=== PATIENT | female | born 1980 | race African-American/Black ===

== ENCOUNTER 2019-05-01 14:48 | Inpatient (IN) | payer OTHER ==
[2019-05-01 15:31] VITALS: BMI 25.2
--- NOTE | 2019-05-01 17:11 | HP ---
COWS - Scale Resting Pulse: 1= [place] 81-100 CIWA Score - Admission Criteria OASAS Guidelines: Admission for Medically Managed Detox: Requires at least one of the followin. CIWA greater than 12 2. Seizures within the past 24 hours 3. Delirium tremens within the past 24 hours 4. Hallucinations within the past 24 hours 5. Acute intervention needed for co occurring medical disorder 6. Acute intervention needed for co occurring psychiatric disorder 7. Severe withdrawal that cannot be handled at a lower level of care (continued vomiting, continued diarrhea, abnormal vital signs) requiring intravenous medication and/or fluids 8. Admission ROS S - HPI Allergies/Adverse Reactions: Allergies Allergy/AdvReac Type Severity Reaction Status Date / Time penicillin G Allergy Verified 05/01/19 15:03 Penicillins AdvReac Verified 05/01/19 15:03 History of Present Illness: 38 y.o. F PMH schizophrenia. The patient was recently admitted to [facility] (04/03/19) with unknown discharge date (she has hospital bracelet on). Patient states "I am here to try to get my child back, they caught my child doing crack cocaine". Patient denies using any recreational substances. Patient has tangential speech. Labile affect. States she did not take medications this morning. Patient sucking her thumb throughout most of interview. Crack cocaine: started at 35 y.o. says she does not use any drugs Cigarettes: Smokes when she is able to get cigarettes Marijuana: occasional use PSH: Social hx: on streets. not currently working. All: PCN Meds: falguni pascal - Ebola screening Have you traveled outside of the country in the last 21 days: No Have you had contact with anyone from an Ebola affected area: No Patient History - Substances abused Crack Substance route: Smoking Frequency: 1-2 times per week Amount used: 1 bag Age of first use: 35 Date of last use: 04/03/19 Admission Physical Exam [facility] - Vital Signs Vital Signs: Vital Signs - 24 hr 05/01/19 15:06 Temperature 97.7 F Pulse Rate 91 H Respiratory 20 Rate Blood Pressure 123/80 - Physical General Appearance: Yes: Within Normal Limits, Disheveled HEENTM: Yes: Hearing grossly Normal, Normal Voice Respiratory: Yes: Lungs Clear, Normal Breath Sounds, No Respiratory Distress Neck: Yes: Other (Diffusely dry skin on neck; cracking, no active discharge or bleeding) Breathalyzer - Breathalyzer Breathalyzer: 0 Urine Drug Screen - Test Device Lot number: [id number] Expiration date: 01/05/21 - Control Is test valid?: Yes - Results Drug screen NEGATIVE: No Urine drug screen results: MET-Methamphetamine, MOP-Opiates, BZO-Benzodiazepines
--- NOTE | 2019-05-01 18:06 | HP ---
CIWA Score - Admission Criteria OASAS Guidelines: Admission for Medically Managed Detox: Requires at least one of the followin. CIWA greater than 12 2. Seizures within the past 24 hours 3. Delirium tremens within the past 24 hours 4. Hallucinations within the past 24 hours 5. Acute intervention needed for co occurring medical disorder 6. Acute intervention needed for co occurring psychiatric disorder 7. Severe withdrawal that cannot be handled at a lower level of care (continued vomiting, continued diarrhea, abnormal vital signs) requiring intravenous medication and/or fluids 8. Admitting History and Physical - Admission Chief Complaint: " I dont want to smoke no more". crack/cocaine rehabilitation History of Present Illness: Patient is a 38 yo female, homeless, with hx of crack / cocaine use since 35 yo referred by [facility], first time seeking treatment. As per patient she was admitted to [facility] for one month for depression. Utox positive for MOP, BZO, MET, patient refuses detox at this time, requested rehabilitation. As per patient she currently has an ACS case and was advise needs to attend treatment. PMHX: denies. Psych: depression, schizophrenia and bipolar reports on ability and Depakote. History Source: Patient Limitations to Obtaining History: No Limitations - Past Surgical History Past Surgical History: Yes: None - Smoking History Smoking history: Current every day smoker Have you smoked in the past 12 months: Yes Aproximately how many cigarettes per day: 4 - Alcohol/Substance Use Hx Alcohol Use: No History of Substance Use: reports: Cocaine Admission ROS [facility] - HPI Allergies/Adverse Reactions: Allergies Allergy/AdvReac Type Severity Reaction Status Date / Time penicillin G Allergy Verified 05/01/19 15:03 Penicillins AdvReac Verified 05/01/19 15:03 Exam Limitations: No Limitations - Ebola screening Have you traveled outside of the country in the last 21 days: No Have you had contact with anyone from an Ebola affected area: No - Review of Systems Constitutional: Chills, Diaphoresis, Changes in sleep EENT: reports: No Symptoms Reported Respiratory: reports: No Symptoms reported Cardiac: reports: No Symptoms Reported GI: reports: No Symptoms Reported : reports: No Symptoms Reported Musculoskeletal: reports: Joint Pain (left foot) Integumentary: reports: Pruritus (neck x one month) Endocrine: reports: No Symptoms Reported Hematology: reports: No Symptoms Reported Psychiatric: reports: Orientated x3, Anxious, Depressed Other Systems: Reviewed and Negative Patient History - Patient Medical History Hx Anemia: No Hx Asthma: No Hx Chronic Obstructive Pulmonary Disease (COPD): No Hx Cancer: No Hx Cardiac Disorders: No Hx Congestive Heart Failure: No Hx Hypertension: No Hx Hypercholesterolemia: No Hx Pacemaker: No HX Cerebrovascular Accident: No Hx Seizures: No Hx Dementia: No Hx Diabetes: No Hx Gastrointestinal Disorders: No Hx Liver Disease: No Hx Genitourinary Disorders: No Hx Sexually Transmitted Disorders: No Hx Renal Disease (ESRD): No Hx Thyroid Disease: No Hx Human Immunodeficiency Virus (HIV): No Hx Hepatitis C: No Hx Depression: Yes Hx Suicide Attempt: No Hx Bipolar Disorder: Yes Hx Schizophrenia: Yes - Patient Surgical History Past Surgical History: Yes Hx Section: Yes (x1) - PPD History Previous Implant?: No Documented Results: Negative w/o proof PPD to be Administered?: Yes - Reproductive History Patient is a Female of Child Bearing Age (11 -55 yrs old): Yes Last Menstrual Period: 03/23/19 Patient : No - Smoking Cessation Smoking history: Current every day smoker Have you smoked in the past 12 months: Yes Aproximately how many cigarettes per day: 4 Hx Chewing Tobacco Use: No Initiated information on smoking cessation: Yes 'Breaking Loose' booklet given: 05/01/19 - Substance & Tx. History Hx Alcohol Use: No Hx Substance Use: Yes Substance Use Type: Cocaine Hx Substance Use Treatment: No - Substances abused Crack Substance route: Smoking Frequency: 3-6 times per week Amount used: $10 -20 Age of first use: 35 Date of last use: 04/03/19 Admission Physical Exam [facility] - Vital Signs Vital Signs: Vital Signs - 24 hr 05/01/19 15:06 Temperature 97.7 F Pulse Rate 91 H Respiratory 20 Rate Blood Pressure 123/80 - Physical General Appearance: Yes: Appropriately Dressed, Thin, Anxious (sucking her thumb and tearing during assessment) HEENTM: Yes: EOMI, Hearing grossly Normal, Normal ENT Inspection, Normocephalic , Normal Voice, HELEN, Pharynx Normal, Tm's normal Respiratory: Yes: Chest Non-Tender, Lungs Clear, Normal Breath Sounds, No Respiratory Distress, No Accessory Muscle Use Neck: Yes: Within Normal Limits Breast: Yes: Breast Exam Deferred Cardiology: Yes: Regular Rhythm, Regular Rate Abdominal: Yes: Normal Bowel Sounds, Non Tender, Flat, Soft Genitourinary: Yes: Within Normal Limits Back: Yes: Normal Inspection Musculoskeletal: Yes: full range of Motion, Gait Steady, Pelvis Stable Extremities: Yes: Normal Capillary Refill, Normal Inspection, Normal Range of Motion, Non-Tender Neurological: Yes: disease intervention specialist II-XII NML intact, Fully Oriented, Alert, Motor Strength 5/5, Depressed Affect Integumentary: Yes: Normal Color, Rash (pruritis around neck with flaking skin) Lymphatic: Yes: Within Normal Limits - Diagnostic (1) Cocaine dependence, uncomplicated Current Visit: Yes Status: Acute (2) Nicotine dependence Current Visit: Yes Status: Chronic Qualifiers: Nicotine product type: cigarettes (3) Psychiatric disorder Current Visit: Yes Status: Acute Comment: Psych consult order patient reports hx of bipolar and schizophernia on abilify and depakote does not recall med dose or last time medication was taken (4) Contact dermatitis Current Visit: Yes Status: Acute Qualifiers: Contact dermatitis type: allergic Contact dermatitis trigger: cosmetics Qualified Code(s): L23.2 - Allergic contact dermatitis due to cosmetics (5) Homelessness Current Visit: Yes Status: Chronic Breathalyzer - Breathalyzer Breathalyzer: 0 Urine Drug Screen - Test Device Lot number: [id number] Expiration date: 01/05/21 - Control Is test valid?: Yes - Results Drug screen NEGATIVE: No Urine drug screen results: MET-Methamphetamine, MOP-Opiates, BZO-Benzodiazepines Inpatient Rehab Admission - Rehab Decision to Admit Inpatient rehab admission?: Yes - Initial Determination Are CD services needed?: Yes Free of communicable disease: Yes Not in need of hospitalization: Yes - Rehab Admission Criteria Previous failed treatment: Yes Poor recovery environment: Yes Comorbidities: Yes Lacks judgement: Yes Patient is meeting Inpatient Rehab admission criteria:: Yes
[2019-05-01] MEDS ORDERED: COLLOIDAL OATMEAL 1 BAR EACH TP PRN (18:17)
[2019-05-01] MEDS ORDERED: HYDROCORTISONE 1% TOPICAL OINT 30 GM TUBE TP PRN (18:18)
[2019-05-01] MEDS ORDERED: MAGNESIUM CITRATE 300 ML BOTTLE PO PRN (18:20)
[2019-05-01] MEDS ORDERED: P-EPHED 60MG/TRIPROLIDI 2.5MG TABLET PO PRN (18:20)
[2019-05-01] MEDS ORDERED: MAG HYDROX/AL HYDROX/SIMETH 30 ML UNIT-DOSE CUP PO PRN (18:20)
[2019-05-01] MEDS ORDERED: MENTHOL/PHENOL 1 EACH UD MM PRN (18:20)
[2019-05-01] MEDS ORDERED: guaiFENesin 200 MG/10 ML 10 ML UNIT-DOSE CUPS PO PRN (18:20)
[2019-05-01] MEDS ORDERED: LOPERAMIDE HCL 2 MG CAPSULE PO PRN (18:20)
[2019-05-01] MEDS ORDERED: MAGNESIUM HYDROX 2400MG/30ML ORAL SUSPENSION 30 ML CUP PO PRN (18:20)
[2019-05-01] MEDS: THIAMINE HCL 100 MG TABLET (FP) PO SCH (21:31)
[2019-05-01] MEDS: MINERAL OIL/PETROLAT/WATER TOPICAL CREAM 113 GM JAR TP SCH (21:31)
[2019-05-01] MEDS: MELATONIN 5 MG TABLETS PO PRN (21:31)
[2019-05-01] MEDS ORDERED: PT OWN MED DRAWER 7, Y5N ONE (22:55)
[2019-05-02] MEDS: NICOTINE POLACRILEX 2 MG GUM BC PRN ×6 (07:17→21:20)
[2019-05-02] MEDS ORDERED: PT OWN MED DRAWER 7, Y5N ONE (08:27)
[2019-05-02] MEDS: MINERAL OIL/PETROLAT/WATER TOPICAL CREAM 113 GM JAR TP SCH ×2 (09:00→21:26)
[2019-05-02] MEDS: PRENATAL VITAMINS W/ FOLIC ACID TABLET (FP) PO SCH (09:00)
[2019-05-02 12:15] LABS: HEMATOCRIT 36.7 % (32.4-45.2); HEMOGLOBIN 11.9 GM/dL (10.7-15.3); MCH 29.3 pg (25.7-33.7); MCHC 32.5 g/dl (32.0-36.0); MEAN CELL VOLUME 90.1 fl (80-96); PLATELET COUNT 228 K/MM3 (134-434); RBC 4.07 M/mm3 (3.60-5.2); RDW 15.3 % (11.6-15.6); WHITE BLOOD COUNT 7.5 K/mm3 (4.0-10.0)
[2019-05-02 12:27] LABS: ALBUMIN 3.4 g/dl (3.4-5.0); BILIRUBIN,TOTAL 0.3 mg/dL (0.2-1); CALCIUM 9.4 mg/dL (8.5-10.1); CREATININE 0.7 mg/dL (0.55-1.3); POTASSIUM 4.2 mmol/L (3.5-5.1); TOT PROT 6.9 g/dl (6.4-8.2)
--- NOTE | 2019-05-02 13:18 | EKG ---
Test Reason : Blood Pressure : / mmHG Vent. Rate : 064 BPM Atrial Rate : 064 BPM P-R Int : 128 ms QRS Dur : 082 ms QT Int : 416 ms P-R-T Axes : 056 041 052 degrees QTc Int : 429 ms NORMAL SINUS RHYTHM RSR' OR QR PATTERN IN V1 SUGGESTS RIGHT VENTRICULAR CONDUCTION DELAY NO PREVIOUS ECGS AVAILABLE Confirmed by NEERU WRIGHT MD ([id number]) on 05/02/2019 1:17:27 PM Referred By: Confirmed By:NEERU WRIGHT MD
--- NOTE | 2019-05-02 19:50 | CONSULT ---
[facility] Psychiatric Consult - Data Date of interview: 05/02/19 Admission source: Direct transfer from [facility]. Identifying data: First visit to [facility] and direct admission to [address] for this 38 y/o AA female referred for rehabilitative care for preservation of sobriety + management of schizophrenia. Patient is single, a mother of two, homeless, unemployed and supported on SSI benefits. Substance Abuse History: Discussed with the patient. Details in current [facility] report as follows : Smoking history: Current every day smoker. Have you smoked in the past 12 months: Yes. Aproximately how many cigarettes per day: 4. Hx Chewing Tobacco Use: No. Initiated information on smoking cessation: Yes. ' Breaking Loose' booklet given: 05/01/19. - Substance & Tx. History. Hx Alcohol Use: No. Hx Substance Use: Yes. Substance Use Type: Cocaine. Hx Substance Use Treatment: No. - Substances abused. Crack. Substance route: Smoking. Frequency: 3-6 times per week. Amount used: $10 -20. Age of first use: 35. Date of last use: 04/03/19 Medical History: Patient endorses good general health. Psychiatric History: Patient is noted as a hostile and irritable historian. She admits to " a few " psychiatric hospitalizations but declines to provide detailsed information. " I came straight from [facility] where they had kept me for a month." Diagnosed with Schizophrenia. As per self-report, the patient is maintained on valproate + aripriprazole (doses not recalled by patient). Ms Singh reports history of one remote - in the - suicide attempt (overdose with iron pills). Physical/Sexual Abuse/Trauma History: No information. Patient declines discussion on this domain. Additional Comment: Urine drug screen results: MET-Methamphetamine, MOP-Opiates , BZO-Benzodiazepines. Noted. Mental Status Exam - Mental Status Exam Alert and Oriented to: Time, Place Patient Appearance: Well Groomed Mood: Hostile, Irritable Affect: Mood Congruent, Normal Range Patient Behavior: Fatigued, Cooperative (superficially cooperative) Speech Pattern: Clear Voice Loudness: Normal Thought Process: Goal Oriented Thought Disorder: Not Present Hallucinations: Denies Suicidal Ideation: Denies Homicidal Ideation: Denies Insight/Judgement: Poor Sleep: Well Appetite: Good Gait/Station: Normal Psychiatric Findings - Problem List ([place] 1, 2,3) (1) Schizophrenia Current Visit: Yes Status: Chronic (2) Cocaine dependence, uncomplicated Current Visit: Yes Status: Chronic (3) Nicotine dependence Current Visit: Yes Status: Chronic Qualifiers: Nicotine product type: cigarettes - Initial Treatment Plan Initial Treatment Plan: Psychiatric evaluation is conducted with naval engineer, VANDANA Collier, in attendance. Collect records from [facility] for collateral information (social work team). Psychoeducation. Sleep hygiene. Groups. AA meetings. Motivational counseling. Will resume, empirically, depakote at the dose of 250 mg po bid + abilify 2 mg po daily (in the absence of data from the referring hospital). Side effects/benefits revisited with the patient. Ms Singh provided verbal consent to this plan of care. Depakote level in AM. Observation.
[2019-05-02] MEDS: THIAMINE HCL 100 MG TABLET (FP) PO SCH (21:19)
[2019-05-02] MEDS: DIVALPROEX SODIUM 250 MG TABLET E.C. PO SCH (21:20)
[2019-05-02] MEDS: MELATONIN 5 MG TABLETS PO PRN (21:20)
[2019-05-03] MEDS: NICOTINE POLACRILEX 2 MG GUM BC PRN ×8 (01:35→21:20)
[2019-05-03] MEDS: hydrOXYzine PAMOATE 50 MG CAPSULE (FP) PO PRN ×3 (02:11→21:18)
[2019-05-03] MEDS: DIVALPROEX SODIUM 250 MG TABLET E.C. PO SCH ×2 (10:42→21:18)
[2019-05-03] MEDS: ARIPiprazole 2 MG TABLET PO SCH (10:43)
[2019-05-03] MEDS: PRENATAL VITAMINS W/ FOLIC ACID TABLET (FP) PO SCH (10:43)
[2019-05-03] MEDS: MINERAL OIL/PETROLAT/WATER TOPICAL CREAM 113 GM JAR TP SCH ×2 (10:45→21:19)
[2019-05-03 12:29] LABS: PH,URINE 8.5 (5.0-8.0); URINE APPEARANCE CLEAR; URINE BILIRUBIN NEGATIVE (NEGATIVE); URINE COLOR YELLOW; URINE GLUCOSE (UA) NEGATIVE (NEGATIVE); URINE KETONE NEGATIVE (NEGATIVE); URINE LEUK ESTERASE NEGATIVE (NEGATIVE); URINE NITRITE NEGATIVE (NEGATIVE); URINE PROTEIN NEGATIVE (NEGATIVE); URINE UROBILINOGEN 0.2 mg/dL (0.2-1.0)
[2019-05-03] MEDS ORDERED: PT OWN MED DRAWER 7, Y5N ONE (18:14)
[2019-05-03] MEDS: THIAMINE HCL 100 MG TABLET (FP) PO SCH (21:17)
[2019-05-04] MEDS: NICOTINE POLACRILEX 2 MG GUM BC PRN ×5 (06:38→22:24)
[2019-05-04] MEDS: DIVALPROEX SODIUM 250 MG TABLET E.C. PO SCH ×2 (10:12→22:23)
[2019-05-04] MEDS: ARIPiprazole 2 MG TABLET PO SCH (10:12)
[2019-05-04] MEDS: PRENATAL VITAMINS W/ FOLIC ACID TABLET (FP) PO SCH (10:12)
[2019-05-04] MEDS: MINERAL OIL/PETROLAT/WATER TOPICAL CREAM 113 GM JAR TP SCH ×2 (10:12→22:24)
[2019-05-04] MEDS: ACETAMINOPHEN 325 MG TABLET (FP) PO PRN ×2 (15:10→23:56)
[2019-05-04] MEDS: hydrOXYzine PAMOATE 50 MG CAPSULE (FP) PO PRN (18:31)
[2019-05-04] MEDS: THIAMINE HCL 100 MG TABLET (FP) PO SCH (22:23)
[2019-05-04] MEDS: GABAPENTIN 100 MG CAPSULE (FP) PO PRN (22:23)
[2019-05-05] MEDS: IBUPROFEN 400 MG TABLET (FP) PO PRN ×2 (01:11→12:46)
[2019-05-05] MEDS: hydrOXYzine PAMOATE 50 MG CAPSULE (FP) PO PRN (05:53)
[2019-05-05] MEDS: ACETAMINOPHEN 325 MG TABLET (FP) PO PRN (05:53)
[2019-05-05] MEDS ORDERED: PT OWN MED DRAWER 7, Y5N ONE ×4 (06:33→21:03)
[2019-05-05] MEDS: NICOTINE POLACRILEX 2 MG GUM BC PRN ×5 (06:58→21:05)
[2019-05-05] MEDS: DIVALPROEX SODIUM 250 MG TABLET E.C. PO SCH ×2 (10:18→21:05)
[2019-05-05] MEDS: PRENATAL VITAMINS W/ FOLIC ACID TABLET (FP) PO SCH (10:18)
[2019-05-05] MEDS: MINERAL OIL/PETROLAT/WATER TOPICAL CREAM 113 GM JAR TP SCH ×2 (10:18→21:06)
[2019-05-05] MEDS: ARIPiprazole 2 MG TABLET PO SCH (10:19)
[2019-05-05] MEDS: THIAMINE HCL 100 MG TABLET (FP) PO SCH (21:05)
[2019-05-05] MEDS: GABAPENTIN 100 MG CAPSULE (FP) PO PRN (21:05)
[2019-05-06] MEDS: NICOTINE POLACRILEX 2 MG GUM BC PRN ×5 (06:39→23:07)
[2019-05-06] MEDS: ARIPiprazole 2 MG TABLET PO SCH (10:35)
[2019-05-06] MEDS: DIVALPROEX SODIUM 250 MG TABLET E.C. PO SCH (10:36)
[2019-05-06] MEDS: MINERAL OIL/PETROLAT/WATER TOPICAL CREAM 113 GM JAR TP SCH ×2 (10:36→22:02)
[2019-05-06] MEDS: PRENATAL VITAMINS W/ FOLIC ACID TABLET (FP) PO SCH (10:36)
--- NOTE | 2019-05-06 12:17 | PN ---
Psychiatric Progress Note Vital Signs: Vital Signs Period Temp Pulse Resp BP Sys/Steward Pulse Ox Last 24 Hr 98.4 F 67 16-16 110/69 Date of Session: 05/06/19 Chief Complaint:: "I'm having trouble sleeping and i sometimes feel snappy." HPI: Patient admitted to for cocaine and nicotine dependence. ROS: Patient is coherent, alert + oriented X3. Current Medications: Active Medications Generic Name Dose Route Start Last Admin Trade Name Freq PRN Reason Stop Dose Admin Acetaminophen 650 mg 05/01/19 18:20 05/05/19 05:53 Tylenol - PO 650 mg Q4H PRN Administration FEVER Al Hydroxide/Mg Hydroxide 30 ml 05/01/19 18:20 Mylanta Oral Suspension - PO Q6H PRN DYSPEPSIA Aripiprazole 2 mg 05/03/19 10:00 05/06/19 10:35 Abilify PO 2 mg DAILY JAJA Administration Colloidal Oatmeal 1 applic 05/01/19 18:17 Aveeno Soap - TP DAILY PRN HYGEINE Divalproex Sodium 250 mg 05/02/19 22:00 05/06/19 10:36 Depakote - PO 250 mg BID JAJA Administration Eucalyptus/Menthol/Phenol/Sorbitol 1 each 05/01/19 18:20 Cepastat Lozenge - MM Q4H PRN SORE THROAT Gabapentin 100 mg 05/01/19 18:17 05/05/19 21:05 Neurontin - PO 100 mg TID PRN Administration pain Guaifenesin 10 ml 05/01/19 18:20 Robitussin - PO Q6H PRN COUGH Hydrocortisone 1 applic 05/01/19 18:18 05/04/19 10:12 Hytone 1% Ointment - TP 1 applic TID PRN Administration Contact Dermatitis Hydroxyzine Pamoate 50 mg 05/01/19 18:20 05/05/19 05:53 Vistaril - PO 50 mg Q4H PRN Administration AGITATION Ibuprofen 400 mg 05/01/19 18:20 05/05/19 12:46 Motrin - PO 400 mg Q6H PRN Administration Pain level 4-6 Loperamide HCl 4 mg 05/01/19 18:20 Imodium - PO Q6H PRN DIARRHEA Magnesium Citrate 300 ml 05/01/19 18:20 Citroma - PO Q48H PRN CONSTIPATION Magnesium Hydroxide 30 ml 05/01/19 18:20 Milk Of Magnesia - PO DAILY PRN CONSTIPATION Melatonin 5 mg 05/01/19 22:00 05/02/19 21:20 Melatonin PO 5 mg HS PRN Administration INSOMNIA Multi-Ingredient Lotion 1 applic 05/01/19 22:00 05/06/19 10:36 Eucerin (Small Jar) - TP 1 applic BID JAJA Administration Nicotine Polacrilex 2 mg 05/01/19 18:20 05/06/19 08:54 Nicorette Gum - BC 2 mg Q2H PRN Administration NICOTINE REPLACEMENT RX Multivit/Folic Acid/Iron 1 tab 05/02/19 10:00 05/06/19 10:36 Vitamins (Sjr) - PO 1 tab DAILY JAJA Administration Pseudoephedrine/Triprolidine 1 combo 05/01/19 18:20 Actifed - PO TID PRN NASAL CONGESTION Thiamine HCl 100 mg 05/01/19 22:00 05/05/19 21:05 Vitamin B1 - PO 100 mg HS JAJA Administration Medication(s) Change(s): Yes. Current Side Effect: No Lab tests ordered: No Lab tests reviewed: Yes Provider note:: Patient with a history of schizophrenia. Patient seen by Dr. Dillard on 05/02/19. Dr. Dillard note read and appreciated. Patient reports difficulty sleeping and feeling "snappy at times." States she has not lashed out at anyone but at times feels irritable and is requesting an increase in depakote to help manage her mood more effectively. States she was recently discharged from [facility] before admission to rehab and was prescribed depakote 1000mg. Patient unsure of her abilify dose. Patient denies auditory/ visual hallucinations. States that when she is off her medications she has delusions that she can read other people's mind. At present patient denies psychotic symptoms. Patient is currently prescribed Abilify 2mg + Depakote 250mg BID. Will d/c Abilify 2mg and Depakote 250mg BID. Will order Abilify 5mg + Depakote 500mg HS. Will continue depakote 250mg Daily. Patient also informed that Melatonin 5mg is available for insomnia. Benefits and side effects discussed. Verbal consent given. Total face to face time:: 25 Mental Status Exam - Mental Status Exam Alert and Oriented to: Time, Place, Person Cognitive Function: Good Patient Appearance: Well Groomed Mood: Euthymic Affect: Mood Congruent Patient Behavior: Cooperative Speech Pattern: Clear Voice Loudness: Normal Thought Process: Goal Oriented Thought Disorder: Not Present Hallucinations: Denies Suicidal Ideation: Denies Homicidal Ideation: Denies Insight/Judgement: Poor Sleep: Poorly Appetite: Fair Muscle strength/Tone: Normal Gait/Station: Normal Psychiatric Treatment Plan - Problem List (1) Cocaine dependence, uncomplicated Current Visit: Yes (2) Nicotine dependence Current Visit: Yes Qualifiers: Nicotine product type: cigarettes (3) Schizophrenia Current Visit: Yes
[2019-05-06] MEDS: MELATONIN 5 MG TABLETS PO PRN (22:01)
[2019-05-06] MEDS: THIAMINE HCL 100 MG TABLET (FP) PO SCH (22:01)
[2019-05-06] MEDS: DIVALPROEX SODIUM 500 MG TABLET E.C. PO SCH (22:01)
[2019-05-07] MEDS: NICOTINE POLACRILEX 2 MG GUM BC PRN ×4 (06:08→22:33)
[2019-05-07] MEDS ORDERED: PT OWN MED DRAWER 7, Y5N ONE ×4 (08:55→20:40)
[2019-05-07] MEDS: MINERAL OIL/PETROLAT/WATER TOPICAL CREAM 113 GM JAR TP SCH ×2 (09:48→22:31)
[2019-05-07] MEDS: PRENATAL VITAMINS W/ FOLIC ACID TABLET (FP) PO SCH (09:48)
[2019-05-07] MEDS: DIVALPROEX SODIUM 250 MG TABLET E.C. PO SCH (09:48)
[2019-05-07] MEDS: ARIPiprazole 5 MG TABLET (FP) PO SCH (09:50)
[2019-05-07] MEDS: DIVALPROEX SODIUM 500 MG TABLET E.C. PO SCH (22:30)
[2019-05-07] MEDS: THIAMINE HCL 100 MG TABLET (FP) PO SCH (22:31)
[2019-05-07] MEDS: MELATONIN 5 MG TABLETS PO PRN (22:31)
[2019-05-08] MEDS: NICOTINE POLACRILEX 2 MG GUM BC PRN ×3 (07:00→18:47)
[2019-05-08 07:19] VITALS: BP 111/70; PULSE 66; TEMP 97.8
[2019-05-08] MEDS ORDERED: PT OWN MED DRAWER 7, Y5N ONE ×3 (08:45→23:10)
[2019-05-08] MEDS: PRENATAL VITAMINS W/ FOLIC ACID TABLET (FP) PO SCH (09:42)
[2019-05-08] MEDS: MINERAL OIL/PETROLAT/WATER TOPICAL CREAM 113 GM JAR TP SCH ×2 (09:42→21:31)
[2019-05-08] MEDS: DIVALPROEX SODIUM 250 MG TABLET E.C. PO SCH (09:42)
[2019-05-08] MEDS: ARIPiprazole 5 MG TABLET (FP) PO SCH (09:42)
[2019-05-08] MEDS: ACETAMINOPHEN 325 MG TABLET (FP) PO PRN (10:33)
[2019-05-08] MEDS: hydrOXYzine PAMOATE 50 MG CAPSULE (FP) PO PRN (13:53)
[2019-05-08] MEDS: THIAMINE HCL 100 MG TABLET (FP) PO SCH (21:31)
[2019-05-08] MEDS: DIVALPROEX SODIUM 500 MG TABLET E.C. PO SCH (21:31)
[2019-05-08] MEDS: MELATONIN 5 MG TABLETS PO PRN (21:32)
[2019-05-09] MEDS: hydrOXYzine PAMOATE 50 MG CAPSULE (FP) PO PRN (02:09)
[2019-05-09] MEDS ORDERED: LORazepam 2 MG TABLET PO ONE (03:24)
--- NOTE | 2019-05-09 08:35 | PN ---
Psychiatric Progress Note Date of Session: 05/09/19 Chief Complaint:: Patient is talking to self HPI: Patient with history of Schizophrenia and cocaine use admitted from [facility] on 05/01/19 for inpatient rehabilitation. Consultation requested because patient was observed talking loudly to herself while in her room saying" I'm going to Fk you pacing from her room to the bathroom. When addressed, she became evasive and hostile. Dr Dillard saw patient on admission on 05/02/19. His note is read and appreciated. According to Dr Dillard' note, patient was referred from [facility] where she was admitted for a month. As per his note, he has no record from [facility] regarding her treatment including medications. He described patient as hostile and irritable providing minimal information. She admitted to a few psychiatric hospitalizations including more recent one at [facility] saying that she was there for a month and was treated with Depakote and Abilify. As per Dr Dillard' note , she did not recall dosages of these medications. According to Dr Dillard' note, in the abscence of data from referring hospital the treatment plan was to resume empically, Depakote at 250 mg/bid and Abilify 2 mg/daily pending verification of her discharge medication from [facility]. There is no documentation regarding whether that verification was done. Current Medications: Active Medications Generic Name Dose Route Start Last Admin Trade Name Freq PRN Reason Stop Dose Admin Acetaminophen 650 mg 05/01/19 18:20 05/08/19 10:33 Tylenol - PO 650 mg Q4H PRN Administration FEVER Al Hydroxide/Mg Hydroxide 30 ml 05/01/19 18:20 Mylanta Oral Suspension - PO Q6H PRN DYSPEPSIA Aripiprazole 5 mg 05/07/19 10:00 05/08/19 09:42 Abilify PO 5 mg DAILY JAJA Administration Colloidal Oatmeal 1 applic 05/01/19 18:17 Aveeno Soap - TP DAILY PRN HYGEINE Divalproex Sodium 500 mg 05/06/19 22:00 05/08/19 21:31 Depakote - PO 500 mg HS JAJA Administration Divalproex Sodium 250 mg 05/07/19 10:00 05/08/19 09:42 Depakote - PO 250 mg DAILY JAJA Administration Eucalyptus/Menthol/Phenol/Sorbitol 1 each 05/01/19 18:20 Cepastat Lozenge - MM Q4H PRN SORE THROAT Gabapentin 100 mg 05/01/19 18:17 05/05/19 21:05 Neurontin - PO 100 mg TID PRN Administration pain Guaifenesin 10 ml 05/01/19 18:20 Robitussin - PO Q6H PRN COUGH Hydrocortisone 1 applic 05/01/19 18:18 05/04/19 10:12 Hytone 1% Ointment - TP 1 applic TID PRN Administration Contact Dermatitis Hydroxyzine Pamoate 50 mg 05/01/19 18:20 05/09/19 02:09 Vistaril - PO 50 mg Q4H PRN Administration AGITATION Ibuprofen 400 mg 05/01/19 18:20 05/05/19 12:46 Motrin - PO 400 mg Q6H PRN Administration Pain level 4-6 Loperamide HCl 4 mg 05/01/19 18:20 Imodium - PO Q6H PRN DIARRHEA Magnesium Citrate 300 ml 05/01/19 18:20 Citroma - PO Q48H PRN CONSTIPATION Magnesium Hydroxide 30 ml 05/01/19 18:20 Milk Of Magnesia - PO DAILY PRN CONSTIPATION Melatonin 5 mg 05/01/19 22:00 05/08/19 21:32 Melatonin PO 5 mg HS PRN Administration INSOMNIA Multi-Ingredient Lotion 1 applic 05/01/19 22:00 05/08/19 21:31 Eucerin (Small Jar) - TP Not Given BID JAJA Nicotine Polacrilex 2 mg 05/01/19 18:20 05/08/19 18:47 Nicorette Gum - BC 2 mg Q2H PRN Administration NICOTINE REPLACEMENT RX Multivit/Folic Acid/Iron 1 tab 05/02/19 10:00 05/08/19 09:42 Vitamins (Sjr) - PO 1 tab DAILY JAJA Administration Pseudoephedrine/Triprolidine 1 combo 05/01/19 18:20 Actifed - PO TID PRN NASAL CONGESTION Thiamine HCl 100 mg 05/01/19 22:00 05/08/19 21:31 Vitamin B1 - PO 100 mg HS JAJA Administration Current Side Effect: No Lab tests ordered: Yes Provider note:: Patient came to the office for interview. She was alert, oriented but very unpleasant, irritable, hostile and uncooperative with the interview. She only talked about she made a mistake with the man with whom she has children with. When asked to elaborate, she got up and walked out of the office. Slasher Sawyer accompanied by a nurse proceeded to go her room in an attempt to complete the interview. She was found in bed completely wrapped with bedsheet. She was more hostile, irritable and refused to cooperate by answering questions. she accused sign writer letterer or painter along with her aunt of conspiring against her. Mental Status Exam - Mental Status Exam Alert and Oriented to: Time, Place, Person Patient Appearance: Well Groomed Mood: Angry, Hostile Affect: Appropriate Patient Behavior: Uncooperative Speech Pattern: Clear Voice Loudness: Normal Thought Process: Intact Thought Disorder: Present (paranoid delusions) Hallucinations: Denies (but internally preoccupied) Suicidal Ideation: Denies Homicidal Ideation: Denies Insight/Judgement: Poor Muscle strength/Tone: Normal Gait/Station: Normal Psychiatric Treatment Plan - Problem List (1) Schizoaffective disorder Current Visit: Yes (2) Cocaine dependence Current Visit: Yes (3) Nicotine dependence Current Visit: Yes Qualifiers: Nicotine product type: cigarettes Initial treatment plan: Patient with history of Schizophrenia and cocaine use present with acute psychosis(auditory hallucinations, paranoid delusions) in the context of sub-optimal dose of medication. She requires a higher level of care to manage her symptoms. She will be 2 PCed and transferred to [facility] for appropriate management
[2019-05-09] MEDS ORDERED: PT OWN MED DRAWER 7, Y5N ONE (08:52)
[2019-05-09] MEDS: MINERAL OIL/PETROLAT/WATER TOPICAL CREAM 113 GM JAR TP SCH (09:34)
[2019-05-09] MEDS: DIVALPROEX SODIUM 250 MG TABLET E.C. PO SCH (09:35)
[2019-05-09] MEDS: ARIPiprazole 5 MG TABLET (FP) PO SCH (09:35)
[2019-05-09] MEDS: PRENATAL VITAMINS W/ FOLIC ACID TABLET (FP) PO SCH (09:35)
--- NOTE | 2019-05-09 10:11 | PN ---
[facility] Progress Note Note: Pt was seen this morning, noted to be not willing to talk to me "why can't you leave me alone". Pt was seen earlier by Dr. Grigsby and by nurses who all noted pt to be hostile and talking to self for the last several hours. Pt has a history of schizophrenia and cocaine use. It is felt that the pt needs a higher level of care and will be sent for further mental eval and management. N
[2019-05-09] MEDS: IBUPROFEN 400 MG TABLET (FP) PO PRN (10:31)
== END 2019-05-09 11:35 | disposition short-term general hospital (02) | DRG 772 ==
LOC: YASAS 14:48 → Y3E 18:36
PROVIDERS: ADMIT Neuromusculoskeletal Medicine & OMM; ATTEND Neuromusculoskeletal Medicine & OMM
PROC: HZ42ZZZ Group Counseling for Substance Abuse Treatment, Cognitive-Behavioral (ICD-10-PCS; principal; 2019-05-01)
DX: F14.20 Cocaine dependence, uncomplicated (principal); F17.210 Nicotine dependence, cigarettes, uncomplicated; F20.9 Schizophrenia, unspecified; F31.9 Bipolar disorder, unspecified; L23.2 Allergic contact dermatitis due to cosmetics; Z88.0 Allergy status to penicillin; Z59.0 Homelessness
CPT/HCPCS: 36415; 80053; 80164; 81003; 81025; 85027; 86593; 93005; 93010